=== PATIENT | female | born 1990 | race Caucasian/White ===

== ENCOUNTER 2020-12-29 23:40 | Inpatient (IN) | payer BC ==
[2020-12-29] MEDS ORDERED: ELECTROLYTE-148 SOLN 1,000 ML IV SCH (23:45)
[2020-12-29] MEDS ORDERED: PROMETHAZINE HCL 25 MG/1 ML VIAL IVPB ONE (23:45)
[2020-12-29] MEDS ORDERED: BUTORPHANOL TARTRATE 2 MG/ML VIAL IVPB ONE (23:45)
[2020-12-30] MEDS ORDERED: PROMETHAZINE HCL 25 MG/1 ML VIAL ONE (00:23)
[2020-12-30] MEDS ORDERED: BUTORPHANOL TARTRATE 2 MG/ML VIAL ONE (00:23)
[2020-12-30 00:37] LABS: BASO % 0.4 % (0-2.0); EOS % 0.1 % (0-4.5); HEMATOCRIT 33.9 % (32.4-45.2); HEMOGLOBIN 11.5 GM/dL (10.7-15.3); LYMPH % 6.5 % (8-40); MCH 26.4 pg (25.7-33.7); MCHC 33.9 g/dl (32.0-36.0); MEAN CELL VOLUME 77.8 fl (80-96); MEAN PLT VOLUME 9.2 fl (7.5-11.1); MONO % 2.6 % (3.8-10.2); NEUT % 90.4 % (42.8-82.8); PLATELET COUNT 219 10^3/uL (134-434); RBC 4.36 M/mm3 (3.60-5.2); RDW 15.4 % (11.6-15.6); WHITE BLOOD COUNT 14.4 K/mm3 (4.0-10.0)
[2020-12-30 00:42] LABS: INR 1.03 (0.83-1.09); PROTHROMBIN TIME (PATIENT) 12.4 SEC (9.7-13.0)
[2020-12-30 00:45] LABS: ACTIVATED PTT 28.3 SECONDS (25.2-36.5)
[2020-12-30 00:57] LABS: CALCIUM 8.6 mg/dL (8.5-10.1)
[2020-12-30 00:58] LABS: BLOOD UREA NITROGEN 7.2 mg/dL (7-18)
[2020-12-30 01:01] LABS: CREATININE 0.5 mg/dL (0.55-1.3)
[2020-12-30 01:34] VITALS: BMI 43.6
[2020-12-30] MEDS ORDERED: PCA PUMP NR ONE (02:21)
[2020-12-30] MEDS ORDERED: FENTANYL/BUPIVACAINE/NS/PF - PCEA - 50 ML DISP.SYRIN EP ONE (02:22)
[2020-12-30] MEDS ORDERED: BUPIVACAINE HCL/PF 0.25% (2.5MG/ML) 10 ML VIAL ONE (02:28)
[2020-12-30] MEDS ORDERED: OXYTOCIN 20 UNITS in 0.9% NS 20 UNIT/1,000 ML INFUS.BAG IV ONE (02:31)
[2020-12-30] MEDS ORDERED: LIDOCAINE HCL 1% PRESERVATIVE FREE - 30ML VIAL ONE (03:06)
[2020-12-30] MEDS ORDERED: BISACODYL 10 MG SUPP.RECT RC PRN (03:26)
[2020-12-30] MEDS ORDERED: WITCH HAZEL 50% (TUCKS) 40 PAD/JAR PAD TP PRN (03:26)
[2020-12-30] MEDS ORDERED: IBUPROFEN 600 MG TABLET (FP) PO PRN (03:26)
[2020-12-30] MEDS ORDERED: BENZOCAINE 20% 57 GM BOTTLE TP PRN (03:26)
[2020-12-30] MEDS ORDERED: BENZOCAINE 28 GM HEMORRHOIDAL OINTMENT TP PRN (03:26)
[2020-12-30] MEDS ORDERED: METHYLERGONOVINE MALEATE 0.2 MG/1 ML AMP IM PRN (03:26)
[2020-12-30] MEDS ORDERED: ACETAMINOPHEN 325 MG TABLET (FP) PO PRN (03:26)
[2020-12-30] MEDS ORDERED: OXYTOCIN 20 UNITS in 0.9% NS 20 UNIT/1,000 ML INFUS.BAG IV SCH (03:30)
[2020-12-31 07:26] LABS: BASO % 0.4 % (0-2.0); EOS % 0.9 % (0-4.5); HEMATOCRIT 30.3 % (32.4-45.2); LYMPH % 22.3 % (8-40); MCH 26.3 pg (25.7-33.7); MCHC 33.1 g/dl (32.0-36.0); MEAN CELL VOLUME 79.5 fl (80-96); MEAN PLT VOLUME 9.5 fl (7.5-11.1); MONO % 5.3 % (3.8-10.2); NEUT % 71.1 % (42.8-82.8); PLATELET COUNT 195 10^3/uL (134-434); RBC 3.81 M/mm3 (3.60-5.2); RDW 15.5 % (11.6-15.6); WHITE BLOOD COUNT 11.8 K/mm3 (4.0-10.0)
[2020-12-31] MEDS ORDERED: SENNOSIDES/DOCUSATE COMBO (SENNA PLUS) TABLET (UD) PO PRN (22:00)
[2021-01-01 09:58] VITALS: BP 135/80; PULSE 69; TEMP 98.4
== END 2021-01-01 12:35 | disposition home or self-care (01) | DRG 806 ==
LOC: JLDR 23:40 → J3W 12-30 05:38
PROVIDERS: ADMIT Obstetrics & Gynecology; ATTEND Obstetrics & Gynecology
PROC: 10E0XZZ Delivery of Products of Conception, External Approach (ICD-10-PCS; principal; 2020-12-30)
PROC: 0KQM0ZZ Repair Perineum Muscle, Open Approach (ICD-10-PCS; 2020-12-30)
PROC: 0W8NXZZ Division of Female Perineum, External Approach (ICD-10-PCS; 2020-12-30)
DX: O98.52 Other viral diseases complicating childbirth (principal); B00.89 Other herpesviral infection; Z37.0 Single live birth; O99.214 Obesity complicating childbirth; E66.01 Morbid (severe) obesity due to excess calories; O70.1 Second degree perineal laceration during delivery; O69.81X0 Labor and delivery complicated by cord around neck, without compression, not applicable or unspecified; O90.81 Anemia of the puerperium; D64.9 Anemia, unspecified; Z3A.39 39 weeks gestation of pregnancy
CPT/HCPCS: 36415; 59409; 80048; 85025; 85610; 85730; 86780; 86850; 86900; 86901; C9803; U0003; U0005

== ENCOUNTER 2022-09-05 04:12 | Day surgery (SDC) | payer BC ==
[2022-08-30 11:50] VITALS: BMI 43.7
[2022-09-05] MEDS ORDERED: SUCCINYLCHOLINE CHLORIDE 200 MG/10 ML SYRINGE ONE (11:22)
[2022-09-05] MEDS ORDERED: MIDAZOLAM HCL 2 MG/2 ML SINGLE DOSE VIAL ONE (11:22)
[2022-09-05] MEDS ORDERED: PROPOFOL 40 ML ONE (11:22)
[2022-09-05] MEDS ORDERED: IBUPROFEN 800 MG/8 ML IJ IVPB PRN (12:03)
[2022-09-05] MEDS ORDERED: IBUPROFEN 600 MG TABLET (FP) PO PRN (12:03)
[2022-09-05] MEDS ORDERED: ONDANSETRON 4 MG/2 ML VIAL IVPUSH PRN (12:03)
[2022-09-05] MEDS ORDERED: oxyCODONE HCL 5 MG TABLET PO PRN ×2 (12:03→12:08)
[2022-09-05] MEDS ORDERED: PROMETHAZINE HCL 25 MG/1 ML VIAL IVPB PRN (12:08)
[2022-09-05] MEDS ORDERED: ACETAMINOPHEN 500 MG TABLET (FP) PO PRN (12:08)
[2022-09-05] MEDS ORDERED: ELECTROLYTE-148 SOLN 1,000 ML IV SCH (12:15)
[2022-09-05] MEDS ORDERED: ACETAMINOPHEN INJECTION 100 ML IVPB ONE (12:35)
[2022-09-05 13:11] VITALS: RESP 16
[2022-09-05] MEDS ORDERED: IBUPROFEN 600 MG TABLET (FP) PO ONE ×2 (13:14→13:20)
[2022-09-05 14:01] VITALS: BP 127/88; PULSE 77; TEMP 97.3
== END 2022-09-05 13:55 | disposition home or self-care (01) ==
LOC: JASU-SURG 04:12
PROVIDERS: ATTEND Obstetrics & Gynecology
PROC: 0UB98ZZ Excision of Uterus, Via Natural or Artificial Opening Endoscopic (ICD-10-PCS; principal; 2022-09-05 10:30)
DX: N93.9 Abnormal uterine and vaginal bleeding, unspecified (principal); N84.0 Polyp of corpus uteri
CPT/HCPCS: 81025; 88305-TC; 94760